=== PATIENT | male | born 1970 | race Caucasian/White ===

== ENCOUNTER → 2018-11-04 20:00 | Outpatient (CLI) | payer MEDICAID, SELFPAY | PROVIDERS: Family Provider Family Medicine; PCP Family Medicine; Visit Provider Student in an Organized Health Care Education/Training Program | DX: G47.10 Hypersomnia, unspecified (principal); R06.83 Snoring; R06.00 Dyspnea, unspecified; R53.83 Other fatigue | CPT/HCPCS: 95810 ==

== ENCOUNTER → 2019-01-20 | Outpatient (CLI) | payer MEDICAID, SELFPAY ==
[2019-01-20] MEDS: Zolpidem Tartrate 5 MG Tablet PO (21:53)
== END | disposition home or self-care (01) ==
PROVIDERS: Family Provider Student in an Organized Health Care Education/Training Program; PCP Student in an Organized Health Care Education/Training Program; Referring Provider Nurse Practitioner Adult Health; Visit Provider Nurse Practitioner Adult Health
DX: G47.33 Obstructive sleep apnea (adult) (pediatric) (principal)
CPT/HCPCS: 95811

== ENCOUNTER → 2019-02-05 09:00 | Outpatient (CLI) | payer MEDICAID, SELFPAY | PROVIDERS: Family Provider Student in an Organized Health Care Education/Training Program; PCP Student in an Organized Health Care Education/Training Program; Referring Provider Nurse Practitioner Adult Health; Visit Provider Nurse Practitioner Adult Health | DX: R69 Illness, unspecified (principal) ==

== ENCOUNTER 2023-02-08 08:37 | Day surgery (SDC) | payer MEDICAID, SELFPAY ==
[2023-02-08] VITALS (8 sets, daily range): BP systolic 77–135; BP diastolic 43–82; PULSE 69–91; RESP 15–16; TEMP 36.3–36.6; O2SAT 92–99; BMI 32.7
--- NOTE | 2023-02-08 08:50 | PCM.HP.BLA ---
History and Physical Date of Admission: 02/08/23 Visit Reasons:?C-SCOPE/EGD Chief Complaint: C-scope/EGD/ excessive belching Housekeeping Associate Required: No Is patient in pain?: No Allergies No Known Allergies Allergy (Unverified 01/15/23 13:55) Medications aspirin 81 mg capsule 81 mg PO DAILY 01/15/23 [History Confirmed 01/15/23] cholecalciferol (vitamin D3) 125 mcg (5,000 unit) capsule 125 mcg PO DAILY 01/15/23 [History Confirmed 01/15/23] famotidine 20 mg tablet (Pepcid) 20 mg PO DAILY 01/15/23 [History Confirmed 01/15/23] fluoxetine 40 mg capsule (Prozac) 40 mg PO DAILY 01/15/23 [History Confirmed 01/15/23] ibuprofen 200 mg capsule 200 mg PO Q6H PRN 01/15/23 [History Confirmed 01/15/23] lisdexamfetamine 50 mg capsule (Vyvanse) 50 mg PO DAILY 01/15/23 [History Confirmed 01/15/23] vitamin B complex (Vitamins B Complex tablet) 1 tab PO DAILY 01/15/23 [History Confirmed 01/15/23] PFSH Medical History?(Updated 01/15/23 @ 14:[address] Oj Soto MD) Blind right eye Surgical History?(Updated 01/15/23 @ 14:03 by Stefani Shanks) H/O eye surgery History of esophagogastroduodenoscopy (EGD) HPI HPI HPI: 52-year-old gentleman is being referred by Dr. Raphael Richter for surgical consultation regarding a screening colonoscopy and gastroesophageal reflux disease with the patient on pantoprazole and famotidine he continued to have belching.? By report he had a previous esophagogastroduodenoscopy May 17, 2020. That upper endoscopy was performed by Dr. Jose Way.? We cannot get access to the operative note.? Pathology showed unremarkable small bowel.? There is reactive gastropathy of the antrum.? H. pylori was negative.? The distal esophagus suggested squamous Koza with with no alteration and no evidence of esophagitis.? There was minimally inflamed cardia type mucosa negative for intestinal metaplasia.? The midesophagus showed no evidence of esophagitis. It appears that he has complained at that time was that he has burped for years.? He swallows air with his BiPAP machine. The patient is initially scheduled to have a combined upper and lower endoscopy in [place] but as he is not permitted to drive did not want to travel that far.? He has need for screening colonoscopy as he has never had one.? He continues to complain of incessant burping and belching sometimes in extreme amounts.? He states that he has not seen any specialists with this in regard. ROS General General: Yes fatigue; No weight change, appetite, colon cancer, breast cancer or weakness HEENT HEENT: Yes eye injury; No difficulty swallowing, eye surgery, swollen glands or hoarseness Endo Endocrine: No thyroid disease, diabetes mellitus, thyroid cancer, Hair loss, heat intolerance or cold intolerance Skin Skin: No rash or changing moles Breast Breast: No left breast lump, right breast lump, nipple discharge, breast pain, abnormal mammogram, abnormal US or breast enlargement Musc Musculoskeletal: No back problems, arthritis, rheumatoid arthritis, gout or joint pain Cardio Cardiovascular: No murmur, pacemaker, heart disease, atrial fibrillation, high blood pressure, heart attack, heart stent, palpitations, shortness of breat with exertion or chest pain Psych Psychiatric: Yes depression and anxiety; No hearing voices Resp Respiratory: No shortness of breath, Yes sleep apnea, No cough, No COPD, No asthma, No emphysema and No wheezing Gastro Gastrointestinal: No abdominal pain, No nausea or vomiting, No diarrhea, No constipation, No blood in stool, Yes acid reflux, No hemorrhoids, No ulcers, No gallbladder problem and No black,tarry stools Russell Hematologic: Yes blood thinners, No blood disorders, No bleeding, No anemia and No blood clots Neuro Neurologic: No system reviewed and no additional complaints, except as documented, No as per HPI, No abnormal gait, No abnormal hearing, No abnormal movements, No abnormal speech, No behavioral changes, No burning sensations, No confusion, No convulsions, No disequilibrium, No dizziness, No localized weakness, No frequent falls, No headache(s), No lack of coordination, No loss of vision, No memory loss, No numbness, No other visual disturbances, No radicular pain, No restless legs, No sensory deficit, No syncope, No tingling, No tremor(s), No weakness and No other Exam Const General: cooperative [facility] Head: normal to inspection Neck Neck: normal visual inspection Chest Other: Slightly increased AP diameter Resp Effort & Inspection: normal respiratory effort Auscultation: clear to auscultation bilaterally Cardio Rate: regular rate Rhythm: regular rhythm GI Other: Soft, nontender, mildly overweight, normal bowel sounds Skin General: no rashes or lesions noted Neuro General: patient alert, patient awake and patient oriented x3 Extrem General: no calf tenderness Psych Appearance: grossly normal Assessment and Plan Assessment and Plan (1) Screening for intestinal cancer: ?Status:?Acute (2) GERD (gastroesophageal reflux disease): ?Status:?Acute ?Plan: Copy: Dr. Raphael Soto M.D., F.A.C.S. (3) Dyslipidemia: ?Status:?Acute (4) Depressive disorder: ?Status:?Acute (5) Sleep apnea: ?Status:?Acute (6) Aerophagia: ?Status:?Acute Plan The patient's primary concern encompasses intractable burping and belching.? He appears to have aerophagia.? I have cautioned the patient and his that surgical reflux procedure could definitively make this much worse.? He has not yet been evaluated by a center of excellence.? He may very well be a candidate for this and perhaps other treatment options like pursue a biofeedback.? I do not believe he is a surgical candidate for this. The patient was already scheduled to have an upper and lower endoscopy but has difficulty with a travel requirement.? We will offer him a esophagogastroduodenoscopy with possible biopsy and colonoscopy with possible biopsy or polypectomy as indicated.? He is aware of the technique, benefit, risk and alternatives. I have offered him referral to a tertiary center and he agrees and we will try to make contact at [facility] gastroenterology. I very much appreciate the kind option of assisting with the surgical care Copy: Dr. Raphael Soto M.D., F.A.C.S. I have examined the patient and the H&P has been reviewed. There are no clinical changes since date of exam. Oj Soto M.D., F.A.C.S.
[2023-02-08] MEDS: Lactated Ringers 1,000 ML 15 ML IV (09:08)
--- NOTE | 2023-02-08 09:30 | IMM_PTH ---
PATIENT: MATTEO BUCIO II LOC: EN U#:[id number] AGE/SX: 52/M ROOM: RE02/08/[address]: Dr. Oj Soto MD : 1970 BED: DIS: 02/08/2023 SPEC #: [id number] RECD: 02/08/23 13:06 STATUS: LORI REElidia #: [id number] ASH: 02/08/23 09:[address]: Oj Soto DEPT: IMMUNOHISTOCHEMISTRY RECD BY: Torrie Hayden ENTERED: 02/08/23 13:07 SP TYPE: IMMUNO OTHR DR: Dr. Raphael Richter, DO Tissues: B - Stomach, NOS Procedures: H Pylori (initial) PHYSICIAN & INSTITUTION [place] [address] SPECIMEN INFORMATION: Tissue Source: B ? Gastric antrum Clinical Info: Screening, GERD Specimen Number: [id number] CPT code: 67023 METHODOLOGY: Deparaffinized sections of prefer/formalin-fixed tissue or PAP/DQ stained slides are incubated with monoclonal/polyclonal antibodies/oligonucleotide probes. Localization is made via biotin free immunoperoxidase method. Appropriate controls are performed and reacted as expected. Results on target cell population are indicated in the following table: RESULTS: ANTIBODY / CLONE RESULT Block B H Pylori (polyclonal) negative These tests were developed and their performance characteristics determined by [facility]. They may not have been cleared or approved by the U.S. Food and Drug Administration. The FDA has determined that such clearance or approval is not necessary. The above immunohistochemical/dualISH markers are ordered and reviewed by the Pathologist. INTERPRETATION: B. Gastric antrum, biopsy: Negative for Helicobacter pylori organisms. SJ:uriel 02/11/2023
--- NOTE | 2023-02-08 09:30 | EGD_PTH ---
PATIENT: MATTEO BUCIO II LOC: EN U#:[id number] AGE/SX: 52/M ROOM: RE02/08/[address]: Dr. Oj Soto MD : 1970 BED: DIS: 02/08/2023 SPEC #: [id number] RECD: 02/08/23 10:28 STATUS: LORI BARBIE #: [id number] ASH: 02/08/23 09:[address]: Oj Soto DEPT: SURGICAL PATHOLOGY RECD BY: Francesca Hendricks ENTERED: 02/08/23 11:24 SP TYPE: EGD BIOPSY OT DR: Dr. Raphael Richter, DO Tissues: A - Duodenum, NOS B - Gastric mucous membrane C - Esophagus, NOS D - Esophagus, NOS Procedures: Special Stain Group II Surgery Specimen Level IV Alcian Blue/PAS (control) HEADER OPERATION: Colonoscopy, EGD ([facility]), biopsy PRE-OP DIAGNOSIS: Screening, GERD TISSUE SUBMITTED: A ? Duodenum biopsy, B ? Gastric antrum biopsy, C ? Distal esophagus biopsy, D ? Mid esophagus biopsy MICROSCOPIC DIAGNOSIS A. Duodenum, biopsy: A fragment of duodenal mucosa, no pathologic diagnosis. B. Gastric antrum, biopsy: Mild gastritis. See microscopic description and comment. C. Distal esophagus, biopsy: Fragments of gastroesophageal mucosa with rare cells with intestinal metaplasia (goblet cell metaplasia). Focal mild chronic inflammation. Negative for dysplasia. See comment. D. Mid esophagus, biopsy: Fragments of benign squamous epithelium. SJ:uriel 02/11/2023 COMMENT B. The results of immunohistochemistry for Helicobacter pylori will be reported separately ([id number]). C. Alcian blue/PAS stain with matched control is used in the evaluation of the specimen. The specimen predominantly consists of squamous mucosa. Correlation with clinical, endoscopic findings and appropriate follow up are necessary. MICROSCOPIC DESCRIPTION Slides are reviewed. B. The specimen shows fragments of gastric mucosa with chronic inflammatory cell infiltrates in the lamina propria consisting of lymphocytes and plasma cells, consistent with mild chronic gastritis. GROSS DESCRIPTION A - Received in fixative is one container labeled with the patient's name and designated biopsy duodenum. The specimen consists of one irregular fragment of light farah soft tissue that measures 0.4 x 0.4 x 0.1 cm. The specimen is totally submitted in one cassette. B - Received in fixative is one container labeled with the patient's name and designated gastric antrum. The specimen consists of one irregular fragment of light farah soft tissue that measures 0.3 x 0.3 x 0.1 cm. The specimen is totally submitted in one cassette. C - Received in fixative is one container labeled with the patient's name and designated biopsy distal esophagus. The specimen consists of multiple irregular fragments of light farah soft tissue that in aggregate measure 1.0 x 0.4 x 0.1 cm. The specimen is totally submitted in one cassette. D - Received in fixative is one container labeled with the patient's name and designated mid esophagus biopsy. The specimen consists of two irregular fragments of light farah soft tissue that in aggregate measure 0.5 x 0.2 x 0.1 cm. The specimen is totally submitted in one cassette. / SJ:uriel 02/08/2023 TC:3 CPT: 21554 x4, 19921
--- NOTE | 2023-02-08 10:20 | OP.EGD_ITS ---
Patient Name: Schuyler Cruz Procedure Date: 02/08/2023 9:44 AM Date of : 1970 Age: 52 Procedure: Upper GI endoscopy Indications: Eructation Providers: Oj Soto MD Medicines: See the Anesthesia note for documentation of the administered medications Complications: No immediate complications. Procedure: Pre-Anesthesia Assessment: - Prior to the procedure, a History and Physical was performed, and patient medications and allergies were reviewed. The patient's tolerance of previous anesthesia was also reviewed. The risks and benefits of the procedure and the sedation options and risks were discussed with the patient. All questions were answered, and informed consent was obtained. Prior Anticoagulants: The patient has taken no previous anticoagulant or antiplatelet agents. ASA Grade Assessment: II - A patient with mild systemic disease. After reviewing the risks and benefits, the patient was deemed in satisfactory condition to undergo the procedure. After obtaining informed consent, the endoscope was passed under direct vision. Throughout the procedure, the patient's blood pressure, pulse, and oxygen saturations were monitored continuously. The gastroscope was introduced through the mouth, and advanced to the second part of duodenum. The upper GI endoscopy was accomplished without difficulty. The patient tolerated the procedure well. Scope In: 9:51:04 AM Scope Out: 9:57:28 AM Total Procedure Duration Time 0 hours 6 minutes 24 seconds Findings: Esophagitis with no bleeding was found 41 cm from the incisors. Biopsies were taken with a cold forceps for histology. The mid esophagus was normal. Biopsies were taken with a cold forceps for histology. The entire examined stomach was normal. Biopsies were taken with a cold forceps for histology. The examined duodenum was normal. Biopsies were taken with a cold forceps for histology. Impression: - Reflux esophagitis. Biopsied. - Normal mid esophagus. Biopsied. - Normal stomach. Biopsied. - Normal examined duodenum. Biopsied. Recommendation: - Discharge patient to home. - Resume previous diet. - Continue present medications. - Telephone my office for pathology results in 1 week. Minimal changes suggesting some mild reflux. No large hiatal hernia seen. No severe acute pathology identified. We will notify patient of pathology results. Procedure Code(s): --- Professional --- 55771, Esophagogastroduodenoscopy, flexible, transoral; with biopsy, single or multiple Diagnosis Code(s): --- Professional --- K21.0, Gastro-esophageal reflux disease with esophagitis R14.2, Eructation CPT copyright 2017 [employer]. All rights reserved. The codes documented in this report are preliminary and upon data coder operator review may be revised to meet current compliance requirements. Oj Soto MD 02/08/2023 10:19:34 AM This report has been signed electronically. Number of Addenda: 0 Note Initiated On: 02/08/2023 9:44 AM
--- NOTE | 2023-02-08 10:21 | OP.CCLET_ITS ---
02/08/2023 Raphael Richter [address] [place] [phone] Re : Upper GI endoscopy procedure for Schuyler Cruz Dear Dr. Richter This procedure was performed on Wednesday, February 08, 2023. My impressions and recommendations are as follows: Impressions : - Reflux esophagitis. Biopsied. - Normal mid esophagus. Biopsied. - Normal stomach. Biopsied. - Normal examined duodenum. Biopsied. Recommendations : - Discharge patient to home. - Resume previous diet. - Continue present medications. - Telephone my office for pathology results in 1 week. Minimal changes suggesting some mild reflux. No large hiatal hernia seen. No severe acute pathology identified. We will notify patient of pathology results. My findings are described in the full procedure note, which is enclosed. If I can be of further assistance, please feel free to contact me at Doctor phone number(s): Work: . Sincerely, Oj Soto MD 02/08/2023 10:19:34 AM This report has been signed electronically.
--- NOTE | 2023-02-08 10:24 | OP.CCLET_ITS ---
02/08/2023 Raphael Richter [address] [place] [address] Re : Colonoscopy procedure for Schuyler Cruz Dear Dr. Richter This procedure was performed on Wednesday, February 08, 2023. My impressions and recommendations are as follows: Impressions : - Hemorrhoids found on perianal exam. - The entire examined colon is normal. - No specimens collected. Recommendations : - Discharge patient to home. - Resume previous diet. - Continue present medications. - Repeat colonoscopy in 10 years for screening purposes. My findings are described in the full procedure note, which is enclosed. If I can be of further assistance, please feel free to contact me at Doctor phone number(s): Work: . Sincerely, Oj Soto MD 02/08/2023 10:23:30 AM This report has been signed electronically.
--- NOTE | 2023-02-08 10:24 | OP.COLON_ITS ---
Patient Name: Schuyler Cruz Procedure Date: 02/08/2023 9:59 AM Date of : 1970 Age: 52 Procedure: Colonoscopy Indications: Screening for colorectal malignant neoplasm Providers: Oj Soto MD Medicines: See the Anesthesia note for documentation of the administered medications Patient Profile: Last Colonoscopy: none. The patient's first colonoscopy is today. Complications: No immediate complications. Procedure: Pre-Anesthesia Assessment: - Prior to the procedure, a History and Physical was performed, and patient medications and allergies were reviewed. The patient's tolerance of previous anesthesia was also reviewed. The risks and benefits of the procedure and the sedation options and risks were discussed with the patient. All questions were answered, and informed consent was obtained. Prior Anticoagulants: The patient has taken no previous anticoagulant or antiplatelet agents. ASA Grade Assessment: II - A patient with mild systemic disease. After reviewing the risks and benefits, the patient was deemed in satisfactory condition to undergo the procedure. After I obtained informed consent, the scope was passed under direct vision. Throughout the procedure, the patient's blood pressure, pulse, and oxygen saturations were monitored continuously. The colonoscope was introduced through the anus and advanced to the cecum, identified by appendiceal orifice and ileocecal valve. The colonoscopy was performed without difficulty. The patient tolerated the procedure well. The quality of the bowel preparation was good. The ileocecal valve and the appendiceal orifice were photographed. Scope In: 10:01:07 AM Scope Withdrawal Time 0 hours 7 minutes 31 seconds Scope Out: 10:14:11 AM Total Procedure Duration Time 0 hours 13 minutes 4 seconds Findings: Hemorrhoids were found on perianal exam. The colon (entire examined portion) appeared normal. Impression: - Hemorrhoids found on perianal exam. - The entire examined colon is normal. - No specimens collected. Recommendation: - Discharge patient to home. - Resume previous diet. - Continue present medications. - Repeat colonoscopy in 10 years for screening purposes. Procedure Code(s): --- Professional --- 68203, Colonoscopy, flexible; diagnostic, including collection of specimen(s) by brushing or washing, when performed (separate procedure) Diagnosis Code(s): --- Professional --- Z12.11, Encounter for screening for malignant neoplasm of colon K64.9, Unspecified hemorrhoids CPT copyright 2017 [employer]. All rights reserved. The codes documented in this report are preliminary and upon candles pourer review may be revised to meet current compliance requirements. Oj Soto MD 02/08/2023 10:23:30 AM This report has been signed electronically. Number of Addenda: 0 Note Initiated On: 02/08/2023 9:59 AM
== END 2023-02-08 11:17 | disposition home or self-care (01) ==
LOC: EN 08:39 → AC 08:40
PROVIDERS: PCP Student in an Organized Health Care Education/Training Program; Referring Provider Student in an Organized Health Care Education/Training Program; Visit Provider Surgery
PROC: 0DJD8ZZ Inspection of Lower Intestinal Tract, Via Natural or Artificial Opening Endoscopic (ICD-10-PCS; CPT 45378; principal; 2023-02-08 09:25)
DX: Z12.11 Encounter for screening for malignant neoplasm of colon (principal); C26.0 Malignant neoplasm of intestinal tract, part unspecified; K29.70 Gastritis, unspecified, without bleeding; K21.00 Gastro-esophageal reflux disease with esophagitis, without bleeding; K64.9 Unspecified hemorrhoids; F32.A Depression, unspecified; F41.9 Anxiety disorder, unspecified; Z79.82 Long term (current) use of aspirin; Z79.899 Other long term (current) drug therapy
CPT/HCPCS: 45378; 43239; 88305; 88313; 88342; J7120; J2405